=== PATIENT | female | born 1935 | race Caucasian/White ===

== ENCOUNTER 2018-10-02 13:22 | Inpatient (IN) | payer MEDICARE ==
[2018-10-02 13:42] LABS: HEMOGLOBIN A1C 6.4 % (4.8-6.2)
[2018-10-02 13:58] LABS: CHLORIDE,CL 105 mEq/L (98-106); SODIUM,NA 137 mEq/L (136-145)
[2018-10-02] MEDS ORDERED: Acetaminophen 325 MG Tab PO PRN (14:55)
[2018-10-02] MEDS ORDERED: Sodium Chloride 0.9% 10 ML Syringe FLUSH PRN (14:55)
[2018-10-02] MEDS ORDERED: Furosemide 40 MG/4 ML VIAL IVPUSH ONE (14:55)
[2018-10-02] MEDS: Pantoprazole 40 MG Vial IVPUSH SCH (15:26)
[2018-10-02] MEDS ORDERED: Sodium Chloride 0.9% 250 ML IV ONE (15:45)
[2018-10-02] MEDS ORDERED: Furosemide 40 MG/4 ML VIAL ONE (18:38)
[2018-10-03] MEDS ORDERED: Lactated Ringers 1,000 ML IV SCH (06:00)
[2018-10-03] MEDS ORDERED: Midazolam 1 MG/ML 2 ML SDV ONE (08:35)
[2018-10-03] MEDS ORDERED: Meperidine PF 50 MG/ML Syringe ONE (08:36)
[2018-10-03] MEDS ORDERED: Midazolam 1 MG/ML 2 ML SDV IV ONE (09:00)
[2018-10-03] MEDS ORDERED: Meperidine PF 50 MG/ML Syringe IV ONE (09:00)
[2018-10-03] MEDS: Levothyroxine 150 MCG Tab PO SCH (09:36)
[2018-10-03] MEDS: Pantoprazole 40 MG Vial IVPUSH SCH ×3 (09:37→19:51)
[2018-10-03] MEDS: Losartan 25 MG Tab PO SCH (09:37)
[2018-10-03] MEDS: Hydrochlorothiazide 25 MG Tab PO SCH (09:38)
--- NOTE | 2018-10-03 11:49 | PCM.PN ---
- General Info Date of Service: 10/03/18 Admission Dx/Problem (Free Text): Anemia Functional Status: Reports: Pain Controlled, Ambulating, Urinating. Denies: Tolerating Diet (Is NPO at this time) - Review of Systems General: Reports: Weakness, Fatigue. Denies: Fever, Malaise HEENT: Reports: No Symptoms Pulmonary: Reports: Shortness of Breath Cardiovascular: Denies: Chest Pain, Palpitations, Lightheadedness Gastrointestinal: Denies: Abdominal Pain, Diarrhea, Hematochezia, Melena, Nausea , Vomiting Genitourinary: Reports: No Symptoms Musculoskeletal: Reports: No Symptoms Skin: Reports: No Symptoms Neurological: Reports: Weakness - Patient Data Vitals - Most Recent: Last Vital Signs Temp 97.1 F 10/03/18 10:56 Pulse 77 10/03/18 10:56 Resp 20 10/03/18 10:56 BP 118/88 10/03/18 10:56 Pulse Ox 97 10/03/18 10:56 Weight - Most Recent: 176 lb 1.6 oz I&O - Last 24 Hours: Intake & Output 10/02/18 10/03/18 10/03/18 22:59 06:59 14:59 Intake Total 700 Balance 700 Lab Results Last 24 Hours: Laboratory Results - last 24 hr 10/02/18 10/02/18 10/02/18 Range/Units 13:28 13:28 13:28 WBC 7.1 (5.0-10.0) 10^3/uL RBC 3.08 L (4.00-5.50) 10^6/uL Hgb 7.5 L* (12.0-16.0) g/dL Hct 25.0 L (37.0-47.0) % MCV 81.2 L (82.0-94.0) fL MCH 24.4 L (27.0-32.0) pg MCHC 30.0 L (33.0-38.0) g/dL RDW Coeff of [place] 15.9 H (11.0-15.0) % Plt Count 298 (150-400) 10^3/uL Neut % (Auto) 67.4 (35-85) % Lymph % (Auto) 23.4 (10-55) % [place] % (Auto) 7.8 (0-16) % Eos % (Auto) 1.1 (0-5) % Baso % (Auto) 0.3 (0-3) % Neut # (Auto) 4.81 (1.80-7.00) 10^3/uL Lymph # (Auto) 1.67 (1.00-4.80) 10^3/uL [place] # (Auto) 0.56 (0.00-0.80) 10^3/uL Eos # (Auto) 0.08 (0.00-0.45) 10^3/uL Baso # (Auto) 0.02 10^3/uL Sodium 137 (136-145) mEq/L Potassium 5.2 H (3.5-5.0) mEq/L Chloride 105 (98-106) mEq/L Carbon Dioxide 24 (21-32) mmol/L BUN 30 H (7-18) mg/dL Creatinine 1.1 H (0.6-1.0) mg/dL Est Cr Clr Drug Dosing TNP Estimated GFR (MDRD) 48 L (>=60) mL/min Glucose 103 H (75-99) mg/dL Hemoglobin A1c 6.4 H (4.8-6.2) % Calcium 8.8 (8.4-10.1) mg/dL Total Bilirubin 0.8 (0.0-1.0) mg/dL AST 16 (15-37) U/L ALT 19 (12-78) U/L Alkaline Phosphatase 69 (46-116) U/L Total Protein 7.0 (6.4-8.2) g/dL Albumin 3.3 L (3.4-5.0) g/dL Triglycerides 100 (30-150) mg/dL Cholesterol 186 (0-199) mg/dL LDL Cholesterol, Calc 85 (0-99) mg/dL HDL Cholesterol 81 (60-90) mg/dL Vitamin B12 (193-986) PG/ML TSH, Ultra Sensitive 2.74 (0.36-5.60) uIU/mL Urine Color (YELLOW) Urine Appearance (CLEAR) Urine pH (4.5-8.0) Ur Specific [place] (1.003-1.020) Urine Protein (NEGATIVE) mg/dL Urine Glucose (UA) (NEGATIVE) mg/dL Urine Ketones (NEGATIVE) mg/dL Urine Occult Blood (NEGATIVE) Urine Nitrite (NEGATIVE) Urine Bilirubin (NEGATIVE) Urine Urobilinogen (0.2-1.0) EU/dL Ur Leukocyte Esterase (NEGATIVE) Urine RBC (0-5) /HPF Urine WBC (0-5) /HPF Ur Squamous Epith Cells (NOT SEEN) /HPF Urine Bacteria (NOT SEEN) /HPF Blood Type Gel Antibody Screen Crossmatch 10/02/18 10/02/18 10/02/18 Range/Units 13:30 14:55 15:12 WBC (5.0-10.0) 10^3/uL RBC (4.00-5.50) 10^6/uL Hgb (12.0-16.0) g/dL Hct (37.0-47.0) % MCV (82.0-94.0) fL MCH (27.0-32.0) pg MCHC (33.0-38.0) g/dL RDW Coeff of [place] (11.0-15.0) % Plt Count (150-400) 10^3/uL Neut % (Auto) (35-85) % Lymph % (Auto) (10-55) % [place] % (Auto) (0-16) % Eos % (Auto) (0-5) % Baso % (Auto) (0-3) % Neut # (Auto) (1.80-7.00) 10^3/uL Lymph # (Auto) (1.00-4.80) 10^3/uL [place] # (Auto) (0.00-0.80) 10^3/uL Eos # (Auto) (0.00-0.45) 10^3/uL Baso # (Auto) 10^3/uL Sodium (136-145) mEq/L Potassium (3.5-5.0) mEq/L Chloride (98-106) mEq/L Carbon Dioxide (21-32) mmol/L BUN (7-18) mg/dL Creatinine (0.6-1.0) mg/dL Est Cr Clr Drug Dosing Estimated GFR (MDRD) (>=60) mL/min Glucose (75-99) mg/dL Hemoglobin A1c (4.8-6.2) % Calcium (8.4-10.1) mg/dL Total Bilirubin (0.0-1.0) mg/dL AST (15-37) U/L ALT (12-78) U/L Alkaline Phosphatase (46-116) U/L Total Protein (6.4-8.2) g/dL Albumin (3.4-5.0) g/dL Triglycerides (30-150) mg/dL Cholesterol (0-199) mg/dL LDL Cholesterol, Calc (0-99) mg/dL HDL Cholesterol (60-90) mg/dL Vitamin B12 463 (193-986) PG/ML TSH, Ultra Sensitive (0.36-5.60) uIU/mL Urine Color Yellow (YELLOW) Urine Appearance Clear (CLEAR) Urine pH 6.0 (4.5-8.0) Ur Specific [place] 1.015 (1.003-1.020) Urine Protein Trace H (NEGATIVE) mg/dL Urine Glucose (UA) Negative (NEGATIVE) mg/dL Urine Ketones Negative (NEGATIVE) mg/dL Urine Occult Blood Trace-intact H (NEGATIVE) Urine Nitrite Negative (NEGATIVE) Urine Bilirubin Negative (NEGATIVE) Urine Urobilinogen 0.2 (0.2-1.0) EU/dL Ur Leukocyte Esterase Trace H (NEGATIVE) Urine RBC 0-5 (0-5) /HPF Urine WBC 0-5 (0-5) /HPF Ur Squamous Epith Cells Few H (NOT SEEN) /HPF Urine Bacteria Few H (NOT SEEN) /HPF Blood Type AB POSITIVE Gel Antibody Screen Negative Crossmatch See Detail 10/03/18 10/03/18 Range/Units 07:00 07:05 WBC 6.7 (5.0-10.0) 10^3/uL RBC 4.16 (4.00-5.50) 10^6/uL Hgb 10.8 L (12.0-16.0) g/dL Hct 34.1 L (37.0-47.0) % MCV 82.0 (82.0-94.0) fL MCH 26.0 L (27.0-32.0) pg MCHC 31.7 L (33.0-38.0) g/dL RDW Coeff of Yoon 16.0 H (11.0-15.0) % Plt Count 279 (150-400) 10^3/uL Neut % (Auto) 64.8 (35-85) % Lymph % (Auto) 23.1 (10-55) % [place] % (Auto) 10.2 (0-16) % Eos % (Auto) 1.6 (0-5) % Baso % (Auto) 0.3 (0-3) % Neut # (Auto) 4.36 (1.80-7.00) 10^3/uL Lymph # (Auto) 1.56 (1.00-4.80) 10^3/uL [place] # (Auto) 0.69 (0.00-0.80) 10^3/uL Eos # (Auto) 0.11 (0.00-0.45) 10^3/uL Baso # (Auto) 0.02 10^3/uL Sodium 138 (136-145) mEq/L Potassium 4.6 (3.5-5.0) mEq/L Chloride 104 (98-106) mEq/L Carbon Dioxide 26 (21-32) mmol/L BUN 26 H (7-18) mg/dL Creatinine 1.2 H (0.6-1.0) mg/dL Est Cr Clr Drug Dosing 27.93 Estimated GFR (MDRD) 43 L (>=60) mL/min Glucose 109 H (75-99) mg/dL Hemoglobin A1c (4.8-6.2) % Calcium 8.7 (8.4-10.1) mg/dL Total Bilirubin (0.0-1.0) mg/dL AST (15-37) U/L ALT (12-78) U/L Alkaline Phosphatase (46-116) U/L Total Protein (6.4-8.2) g/dL Albumin (3.4-5.0) g/dL Triglycerides (30-150) mg/dL Cholesterol (0-199) mg/dL LDL Cholesterol, Calc (0-99) mg/dL HDL Cholesterol (60-90) mg/dL Vitamin B12 (193-986) PG/ML TSH, Ultra Sensitive (0.36-5.60) uIU/mL Urine Color (YELLOW) Urine Appearance (CLEAR) Urine pH (4.5-8.0) Ur Specific [place] (1.003-1.020) Urine Protein (NEGATIVE) mg/dL Urine Glucose (UA) (NEGATIVE) mg/dL Urine Ketones (NEGATIVE) mg/dL Urine Occult Blood (NEGATIVE) Urine Nitrite (NEGATIVE) Urine Bilirubin (NEGATIVE) Urine Urobilinogen (0.2-1.0) EU/dL Ur Leukocyte Esterase (NEGATIVE) Urine RBC (0-5) /HPF Urine WBC (0-5) /HPF Ur Squamous Epith Cells (NOT SEEN) /HPF Urine Bacteria (NOT SEEN) /HPF Blood Type Gel Antibody Screen Crossmatch Sarkis Results Last 24 Hours: Microbiology 10/02/18 14:55 Occult Blood - Preliminary Stool / Feces Med Orders - Current: Current Medications Acetaminophen (Tylenol) 650 mg PO Q4H PRN PRN Reason: Pain (Mild 1-3)/fever Hydrochlorothiazide (Hydrochlorothiazide) 25 mg PO DAILY [facility] Last Admin: 10/03/18 09:38 Dose: Not Given Lactated Ringer's (Ringers, Lactated) 1,000 mls @ 125 mls/hr IV ASDIRECTED [facility] Last Admin: 10/03/18 06:34 Dose: 125 mls/hr Levothyroxine Sodium (Levothyroxine) 75 mcg PO ACBREAKFAST [facility] Last Admin: 10/03/18 09:36 Dose: 75 mcg Losartan Potassium (Cozaar) 50 mg PO DAILY [facility] Last Admin: 10/03/18 09:37 Dose: Not Given Pantoprazole Sodium (Protonix Iv) 40 mg IVPUSH BID [facility] Last Admin: 10/03/18 09:37 Dose: 40 mg Sodium Chloride (Saline Flush) 10 ml FLUSH ASDIRECTED PRN PRN Reason: Keep Vein Open Discontinued Medications Furosemide (Lasix) 40 mg IVPUSH ONETIME ONE Stop: 10/02/18 14:56 Last Admin: 10/02/18 18:34 Dose: 40 mg Furosemide (Lasix) Confirm Administered Dose 40 mg .ROUTE .STK-MED ONE Stop: 10/02/18 18:39 Last Admin: 10/02/18 18:37 Dose: Not Given Sodium Chloride (Normal Saline) 250 mls @ 125 mls/hr IV ONETIME ONE Stop: 10/02/18 17:44 Last Admin: 10/02/18 15:52 Dose: 125 mls/hr Meperidine HCl (Demerol) Confirm Administered Dose 50 mg .ROUTE .STK-MED ONE Stop: 10/03/18 08:37 Last Admin: 10/03/18 10:55 Dose: Not Given Midazolam HCl (Versed 1 Mg/Ml) Confirm Administered Dose 4 mg .ROUTE .STK-MED ONE Stop: 10/03/18 08:36 Last Admin: 10/03/18 10:55 Dose: Not Given Pantoprazole Sodium (Protonix Iv) 40 mg IVPUSH DAILY [facility] Last Admin: 10/03/18 09:42 Dose: Not Given - Exam General: Alert, Oriented HEENT: Mucous Membr. Moist/[place] Neck: Supple Lungs: Clear to Auscultation, Normal Respiratory Effort Cardiovascular: Regular Rate, Regular Rhythm GI/Abdominal Exam: Normal Bowel Sounds, Soft, Non-Tender Extremities: Normal Inspection, No Pedal Edema Skin: Warm, Dry Neurological: No New Focal Deficit - Problem List & Annotations (1) Anemia SNOMED Code(s): 333651663 Code(s): D64.9 - ANEMIA, UNSPECIFIED Status: Acute Priority: High Current Visit: Yes Qualifiers: Other causes of anemia: acute posthemorrhagic (2) PUD (peptic ulcer disease) SNOMED Code(s): 99877628 Code(s): K27.9 - PEPTIC ULC, SITE UNSP, UNSP AC OR CHR, W/O HEMOR OR PERF Status: Acute Priority: High Current Visit: Yes - Problem List Review Problem List Initiated/Reviewed/Updated: Yes - My Orders Last 24 Hours: My Active Orders 10/03/18 09:30 Pantoprazole [ProTONIX IV] 40 mg IVPUSH BID - Assessment Assessment:: Anemia PUD - Plan Plan:: Patient doing well this am prior to EGD. Denies nausea. No abdominal pain. Did have BM last evening that was negative for blood. Has not had a previous colonoscopy and declines one. Is NPO this am for EGD. IV fluids infusing. Currently on IV Protonix daily. Did receive 2 units of PRBCs yesterday. Hemoglobin increased to 10.8 this am. Sodium and potassium normal. 0930-Patient's EGD completed. Does have noted healing peptic ulcer. Will increase Protonix IV to BID. Awaiting iron studies yet. Advance diet as tolerated. Possible discharge home tomorrow.
--- NOTE | 2018-10-03 14:44 | OR ---
DDATE OF OPERATION: 10/03/2018 PREOPERATIVE DIAGNOSIS: IRON-DEFICIENCY ANEMIA. POSTOPERATIVE DIAGNOSIS: HEALING GASTRIC ULCER. SURGEON: Trent Marquez MD PROCEDURE: EGD WITH BIOPSIES X3, LISANDRO. ANESTHESIA: Conscious sedation with continuous O2 sat monitoring on nurse assist using 50 mg of Demerol, 4 mg of Versed. Oxygen saturations remained above 90% for the entire time. COMPLICATIONS: None. SPECIMEN: 1. Antral LISANDRO. 2. Fundal biopsy x3. FINDINGS: 1. Full-length EGD. 2. Large healing ulcer in fundus without bleeding. RECOMMENDATIONS: Proton pump therapy and treatment for H. pylori pending LISANDRO report. INDICATIONS: The patient presented with complaints of weakness and was found to have microcytic anemia with hemoglobin of 7 from baseline of 14 in the recent past. She does admit to prior melena in the last few months. She was hospitalized for a blood transfusion, iron studies, and EGD was consulted. DESCRIPTION OF PROCEDURE: The patient was prepped and draped, placed in the left lateral decubitus position. A lubricated Olympus gastroscope was inserted over a bit, advanced to the cricopharyngeus area, and easily intubated into the esophagus. The esophageal lining was benign in its entire course. The Z-line was crisp around 38 cm. No obvious hernia seen. No spontaneous reflux, distal esophagitis, stricturing, ulceration, or Marlow's changes. The scope was advanced into the stomach, through the pylorus, and into the second portion of the duodenum. This and the duodenal bulb were unremarkable. The scope was brought back into the stomach. The entire antrum appeared benign. Retroflexion of scope showed no upper fundal or cardia lesions. Upon straightening, a better view of the rest of the fundus showed a healing and large gastric ulcer along the lesser curvature of the fundus, no active bleeding. Three biopsies of the edges of this ulcer were obtained without complication along with a CLOtest from the antrum. Air was then suctioned, the scope removed without complication. ELLIE/MEGAN /[id number]
[2018-10-04] MEDS: Levothyroxine 150 MCG Tab PO SCH (06:35)
[2018-10-04] MEDS: Pantoprazole 40 MG Vial IVPUSH SCH (07:31)
[2018-10-04] MEDS: Hydrochlorothiazide 25 MG Tab PO SCH (07:34)
[2018-10-04 07:35] VITALS: BP 154/56
[2018-10-04] MEDS: Losartan 25 MG Tab PO SCH (07:35)
--- NOTE | 2018-10-04 22:16 | PCM.DCSUM1 ---
Discharge Summary - Hospital Course Free Text/Narrative:: Patient presented to see Romel Ashley for routine lab work and med refill. Was found to have a hemoglobin of 7.5. When discussing this with patient, did admit to having the flu about a month prior, stools were darker in nature. Mild GI discomfort. Has not noted any obvious blood in her stools. Admitted acute, 2 units of packed red blood cells given. Started on IV protonix. Plan for EGD. Diagnosis: Stroke: No Modified [place] Scale: No Symptoms at All Modified [place] Scale Score: 0 - Discharge Data Discharge Date: 10/04/18 Discharge Disposition: Home, Self-Care 01 Condition: Good - Discharge Diagnosis/Problem(s) (1) Anemia SNOMED Code(s): 109366118 ICD Code: D64.9 - ANEMIA, UNSPECIFIED Status: Acute Priority: High Qualifiers: Other causes of anemia: acute posthemorrhagic (2) PUD (peptic ulcer disease) SNOMED Code(s): 77921865 ICD Code: K27.9 - PEPTIC ULC, SITE UNSP, UNSP AC OR CHR, W/O HEMOR OR PERF Status: Acute Priority: High - Patient Summary/Data Complications: none Consults: Consultations 10/02/18 14:55 Consult to Physician [CONS] Routine Hospital Course: Patient is feeling good, has not really experienced any abdominal pain. Stool samples done were negative for blood. Hemoglobin improved to 10.8 after blood transfusion and remained stable this am at 10.7. EGD was done which did show a healing ulcer. Protonix was increased to BID. Increased diet and has tolerated well. Has not experienced any lightheadedness. Blood pressure 120s- 150s/70s. Will discharge home on Protonix daily. Carafate QID. Follow up with Romel in one week, repeat hemoglobin at that time. - Patient Instructions Diet: Usual Diet as Tolerated Activity: As Tolerated Other/Special Instructions: CBC prior to visit with Romel Ashley - Discharge Plan *PRESCRIPTION DRUG MONITORING PROGRAM REVIEWED*: No *COPY OF PRESCRIPTION DRUG MONITORING REPORT IN PATIENT KAMRAN: No Prescriptions/Med Rec: Pantoprazole Sodium [Protonix] 40 mg PO DAILY #30 tablet. Sucralfate [Carafate] 1 gm PO TID #21 tablet Home Medications: Home Meds Ca Carbonate/Vitamin D3/Vit K [Calcium + D Soft Chewable Tab] 1 each PO DAILY [History] Hydrochlorothiazide 25 mg PO DAILY 06/15/15 [History] Levothyroxine 75 mcg PO ACBREAKFAST 06/15/15 [History] Losartan Potassium 50 mg PO DAILY 06/15/15 [History] Multivitamin [Multivitamins] 1 each PO DAILY 06/15/15 [History] Biotin 1,000 mcg PO DAILY 10/02/18 [History] Pantoprazole Sodium [Protonix] 40 mg PO DAILY #30 tablet. 10/04/18 [Rx] Sucralfate [Carafate] 1 gm PO TID #21 tablet 10/04/18 [Rx] Patient Handouts: Peptic Ulcer, Anemia Referrals: Ray Ashley PA-C [Primary Care Provider] - (Follow up with Romel on October 16, lab prior to visit) - Discharge Summary/Plan Comment DC Time >30 min.: No - General Info Date of Service: 10/04/18 Admission Dx/Problem (Free Text: Anemia Functional Status: Reports: Pain Controlled, Tolerating Diet, Ambulating - Review of Systems General: Denies: Fever, Weakness, Fatigue, Malaise HEENT: Reports: No Symptoms Pulmonary: Denies: Shortness of Breath, Cough Cardiovascular: Denies: Chest Pain, Edema, Lightheadedness Gastrointestinal: Denies: Abdominal Pain, Diarrhea, Hematochezia, Melena, Nausea , Vomiting Genitourinary: Reports: No Symptoms Musculoskeletal: Reports: No Symptoms Skin: Reports: No Symptoms Neurological: Reports: No Symptoms - Patient Data Vitals - Most Recent: Last Vital Signs Temp 97.1 F 10/04/18 07:34 Pulse 66 10/04/18 07:34 Resp 20 10/04/18 07:34 BP 154/56 H 10/04/18 07:35 Pulse Ox 97 10/04/18 07:34 Weight - Most Recent: 176 lb 1.6 oz Lab Results - Last 24 hrs: Laboratory Results - last 24 hr 10/02/18 10/02/18 10/04/18 Range/Units 13:30 15:30 07:05 WBC 6.8 (5.0-10.0) 10^3/uL RBC 4.10 (4.00-5.50) 10^6/uL Hgb 10.7 L (12.0-16.0) g/dL Hct 34.0 L (37.0-47.0) % MCV 82.9 (82.0-94.0) fL MCH 26.1 L (27.0-32.0) pg MCHC 31.5 L (33.0-38.0) g/dL RDW Coeff of Yoon 16.4 H (11.0-15.0) % Plt Count 256 (150-400) 10^3/uL Neut % (Auto) 64.6 (35-85) % Lymph % (Auto) 22.1 (10-55) % [place] % (Auto) 11.1 (0-16) % Eos % (Auto) 1.9 (0-5) % Baso % (Auto) 0.3 (0-3) % Neut # (Auto) 4.36 (1.80-7.00) 10^3/uL Lymph # (Auto) 1.49 (1.00-4.80) 10^3/uL [place] # (Auto) 0.75 (0.00-0.80) 10^3/uL Eos # (Auto) 0.13 (0.00-0.45) 10^3/uL Baso # (Auto) 0.02 10^3/uL Sodium (136-145) mEq/L Potassium (3.5-5.0) mEq/L Chloride (98-106) mEq/L Carbon Dioxide (21-32) mmol/L BUN (7-18) mg/dL Creatinine (0.6-1.0) mg/dL Est Cr Clr Drug Dosing mL/min Estimated GFR (MDRD) (>=60) mL/min Glucose (75-99) mg/dL Calcium (8.4-10.1) mg/dL Iron 11 L (35-145) ug/dL TIBC 622 H (261-478) ug/dL Unsaturated IBC 611 H (155-355) ug/dL Transferrin % Sat 1.8 L (20.0-50.0) % Ferritin 3 L (11-307) ng/mL Crossmatch See Detail 10/04/18 Range/Units 07:05 WBC (5.0-10.0) 10^3/uL RBC (4.00-5.50) 10^6/uL Hgb (12.0-16.0) g/dL Hct (37.0-47.0) % MCV (82.0-94.0) fL MCH (27.0-32.0) pg MCHC (33.0-38.0) g/dL RDW Coeff of [place] (11.0-15.0) % Plt Count (150-400) 10^3/uL Neut % (Auto) (35-85) % Lymph % (Auto) (10-55) % [place] % (Auto) (0-16) % Eos % (Auto) (0-5) % Baso % (Auto) (0-3) % Neut # (Auto) (1.80-7.00) 10^3/uL Lymph # (Auto) (1.00-4.80) 10^3/uL [place] # (Auto) (0.00-0.80) 10^3/uL Eos # (Auto) (0.00-0.45) 10^3/uL Baso # (Auto) 10^3/uL Sodium 138 (136-145) mEq/L Potassium 4.7 (3.5-5.0) mEq/L Chloride 105 (98-106) mEq/L Carbon Dioxide 25 (21-32) mmol/L BUN 23 H (7-18) mg/dL Creatinine 1.1 H (0.6-1.0) mg/dL Est Cr Clr Drug Dosing 30.47 mL/min Estimated GFR (MDRD) 48 L (>=60) mL/min Glucose 111 H (75-99) mg/dL Calcium 8.2 L (8.4-10.1) mg/dL Iron (35-145) ug/dL TIBC (261-478) ug/dL Unsaturated IBC (155-355) ug/dL Transferrin % Sat (20.0-50.0) % Ferritin (11-307) ng/mL Crossmatch Med Orders - Current: Current Medications Discontinued Medications Acetaminophen (Tylenol) 650 mg PO Q4H PRN PRN Reason: Pain (Mild 1-3)/fever Furosemide (Lasix) 40 mg IVPUSH ONETIME ONE Stop: 10/02/18 14:56 Last Admin: 10/02/18 18:34 Dose: 40 mg Furosemide (Lasix) Confirm Administered Dose 40 mg .ROUTE .STK-MED ONE Stop: 10/02/18 18:39 Last Admin: 10/02/18 18:37 Dose: Not Given Hydrochlorothiazide (Hydrochlorothiazide) 25 mg PO DAILY [facility] Last Admin: 10/04/18 07:34 Dose: 25 mg Sodium Chloride (Normal Saline) 250 mls @ 125 mls/hr IV ONETIME ONE Stop: 10/02/18 17:44 Last Admin: 10/02/18 15:52 Dose: 125 mls/hr Lactated Ringer's (Ringers, Lactated) 1,000 mls @ 125 mls/hr IV ASDIRECTED [facility] Last Admin: 10/03/18 06:34 Dose: 125 mls/hr Levothyroxine Sodium (Levothyroxine) 75 mcg PO ACBREAKFAST [facility] Last Admin: 10/04/18 06:35 Dose: 75 mcg Losartan Potassium (Cozaar) 50 mg PO DAILY [facility] Last Admin: 10/04/18 07:35 Dose: 50 mg Meperidine HCl (Demerol) Confirm Administered Dose 50 mg .ROUTE .STK-MED ONE Stop: 10/03/18 08:37 Last Admin: 10/03/18 10:55 Dose: Not Given Meperidine HCl (Demerol) 50 mg IV .STK-MED ONE Stop: 10/03/18 09:01 Last Admin: 10/03/18 09:00 Dose: 50 mg Midazolam HCl (Versed 1 Mg/Ml) Confirm Administered Dose 4 mg .ROUTE .STK-MED ONE Stop: 10/03/18 08:36 Last Admin: 10/03/18 10:55 Dose: Not Given Midazolam HCl (Versed 1 Mg/Ml) 4 mg IV .STK-MED ONE Stop: 10/03/18 09:01 Last Admin: 10/03/18 09:00 Dose: 4 mg Pantoprazole Sodium (Protonix Iv) 40 mg IVPUSH DAILY [facility] Last Admin: 10/03/18 09:42 Dose: Not Given Pantoprazole Sodium (Protonix Iv) 40 mg IVPUSH BID [facility] Last Admin: 10/04/18 07:31 Dose: 40 mg Sodium Chloride (Saline Flush) 10 ml FLUSH ASDIRECTED PRN PRN Reason: Keep Vein Open - Exam General: Reports: Alert, Oriented HEENT: Reports: Mucous Membr. Moist/[place] Neck: Reports: Supple Lungs: Reports: Clear to Auscultation, Normal Respiratory Effort Cardiovascular: Reports: Regular Rate, Regular Rhythm GI/Abdominal Exam: Normal Bowel Sounds, Soft, Non-Tender Extremities: Normal Inspection, No Pedal Edema Skin: Reports: Warm, Dry Neurological: Reports: No New Focal Deficit
== END 2018-10-04 10:00 | disposition home or self-care (01) | DRG 812 ==
LOC: CC.FCMC 13:22 → CC.MS 13:22 → UNDOADMIN 14:21 → CC.MS 14:21
PROVIDERS: ADMIT Physician Assistant Medical; ATTEND Family Medicine
PROC: 0DB68ZX Excision of Stomach, Via Natural or Artificial Opening Endoscopic, Diagnostic (ICD-10-PCS; principal; 2018-10-03)
PROC: 30233N1 Transfusion of Nonautologous Red Blood Cells into Peripheral Vein, Percutaneous Approach (ICD-10-PCS; 2018-10-03)
DX: D62 Acute posthemorrhagic anemia (principal); K25.9 Gastric ulcer, unspecified as acute or chronic, without hemorrhage or perforation; E78.5 Hyperlipidemia, unspecified; Z90.49 Acquired absence of other specified parts of digestive tract; R73.03 Prediabetes; I10 Essential (primary) hypertension; E03.9 Hypothyroidism, unspecified; M19.90 Unspecified osteoarthritis, unspecified site; H91.90 Unspecified hearing loss, unspecified ear; H26.9 Unspecified cataract; Z79.899 Other long term (current) drug therapy
CPT/HCPCS: 36415; 36430; 71046; 80048; 80053; 80061; 81001; 82270; 82607; 82728; 83036; 83540; 83550; 84443; 85025; 86850; 86900; 86901; 86920; 86922; 87081; 88305; A9270-GY; C9113; J1940; J2175; J2250; J7050; J7120; P9016

== ENCOUNTER 2022-02-20 11:09 | Emergency (ER) | payer MEDICARE ==
[2022-02-20 11:28] VITALS: BP 144/70
[2022-02-20 11:30] VITALS: PULSE 87
== END 2022-02-20 11:35 | disposition home or self-care (01) ==
LOC: CC.ED 11:09
DX: S20.229A Contusion of unspecified back wall of thorax, initial encounter (principal); S10.93XA Contusion of unspecified part of neck, initial encounter; I10 Essential (primary) hypertension; E03.9 Hypothyroidism, unspecified; Z88.5 Allergy status to narcotic agent; Z79.899 Other long term (current) drug therapy; W19.XXXA Unspecified fall, initial encounter
CPT/HCPCS: 99283

== ENCOUNTER 2024-02-10 09:30 | Observation (INO) | payer MEDICARE ==
[2024-02-10] MEDS ORDERED: Sodium Chloride 0.9% 1,000 ML IV ONE (11:00)
[2024-02-10] MEDS ORDERED: Pantoprazole 40 MG Vial IVPUSH ONE (11:15)
[2024-02-10 14:33] LABS: HEMATOCRIT 37.2 % (37.0-47.0); HEMOGLOBIN 12.4 g/dL (12.0-16.0)
[2024-02-10 14:34] LABS: BASOPHILS ABSOLUTE AUTO 0.03 10^3/uL (0.00-0.50); BASOPHILS PERCENT AUTO 0.4 % (0-1); EOSINOPHILS ABSOLUTE AUTO 0.01 10^3/uL (0.00-1.50); EOSINOPHILS PERCENT AUTO 0.1 % (0-6); HEMATOCRIT 39.2 % (37.0-47.0); HEMOGLOBIN 12.9 g/dL (12.0-16.0); IMMATURE GRAN ABSOLUTE AUTO 0.01 10^3/uL (0.00-0.49); IMMATURE GRAN PERCENT AUTO 0.1 % (0.0-4.9); LYMPHOCYTES ABSOLUTE AUTO 1.03 10^3/uL (0.60-5.00); LYMPHOCYTES PERCENT AUTO 13.1 % (24-44); MEAN CORPUSCULAR HEMOGLOBIN 31.3 pg (27.0-32.0); MEAN CORPUSCULAR HGB CONC 32.9 g/dL (32.0-36.0); MEAN CORPUSCULAR VOLUME 95.1 fL (83.0-97.0); MONOCYTES ABSOLUTE AUTO 0.53 10^3/uL (0.00-1.50); MONOCYTES PERCENT AUTO 6.8 % (0-10); NEUTROPHILS ABSOLUTE AUTO 6.24 x10^3/uL (1.80-8.00); NEUTROPHILS PERCENT AUTO 79.5 % (41-71); PLATELET COUNT,PLT 209 10^3/uL (150-400); RED BLOOD CELL COUNT 4.12 x10^6/uL (4.00-5.50); WHITE BLOOD CELL COUNT,WBC 7.9 10^3/uL (4.0-11.0)
[2024-02-10 14:40] LABS: BLOOD UREA NITROGEN,BUN 52 mg/dL (7-18); CARBON DIOXIDE,CO2 27 mmol/L (21-32); CHLORIDE,CL 105 mEq/L (98-106); ESTIMATED GFR 55 mL/min (>=60); GLUCOSE RANDOM 117 mg/dL (75-99); POTASSIUM,K 4.8 mEq/L (3.5-5.0); PROTEIN TOTAL,TP 6.9 g/dL (6.4-8.2); SODIUM,NA 141 mEq/L (136-145)
[2024-02-10 14:41] LABS: ALANINE AMINOTRANSFERASE,ALT 22 U/L (12-78); ALBUMIN 3.3 g/dL (3.4-5.0); ALKALINE PHOSPHATASE 64 U/L (46-116); ASPARTATE AMNIOTRANSFERASE,AST 14 U/L (15-37); BILIRUBIN TOTAL 1.1 mg/dL (0.0-1.0)
== END 2024-02-10 15:00 ==
LOC: CC.ED 09:30 → CC.MS 11:00 → CC.ED 13:03
PROVIDERS: ADMIT Physician Assistant Medical; ATTEND Physician Assistant Medical
DX: K92.2 Gastrointestinal hemorrhage, unspecified (principal); I10 Essential (primary) hypertension; E03.9 Hypothyroidism, unspecified; Z98.890 Other specified postprocedural states
CPT/HCPCS: 36415; 36430; 80053; 82272; 84484; 85014; 85018; 85025; 86850; 86900; 86901; 86920; 86922; 96374; 99285; G0378; J2470; J7030; P9016